=== PATIENT | male | born 1965 | race Caucasian/White ===

== ENCOUNTER 2024-10-05 08:54 | Outpatient (REF) | payer OTHER, SELFPAY ==
[2024-10-05 11:21] LABS: Hematocrit 44.4 % (42.0-52.0); Hemoglobin 15.3 g/dl (14.0-18.0); Mean Corpuscular HGB Conc 34.5 g/dl (31.0-36.0); Mean Corpuscular Hemoglobin 30.1 pg (27.0-33.0); Mean Corpuscular Volume 87.4 fL (80.0-98.0); NRBC Abs Auto 0.000 X10*3/uL (0.0-0.012); NRBC Pct Auto 0.0 /100WBC (0.0-0.2); Platelet Count 200 X10*3/uL (160-400); Red Blood Count 5.08 X10*6/uL (4.60-5.80); White Blood Count 9.9 X10*3/uL (4.8-10.8)
[2024-10-05 11:30] LABS: Hemoglobin A1C 142.3529 umol/L; Total Hemoglobin (HGBA1C) 3945.5502 umol/L
[2024-10-05 11:49] LABS: Microalbum/Creatinine Ratio Ur 4.7 ug/mg cr (<30)
[2024-10-05 11:53] LABS: Alanine Aminotransferase 34 U/L (0-40); Albumin Level 4.8 g/dL (3.5-5.0); Alkaline Phosphatase 81 U/L (39-117); Anion Gap 14 (12-20); Aspartate Amino Transferase 47 U/L (5-37); Blood Urea Nitrogen 24 mg/dL (9-16); Calcium 9.8 mg/dL (8.4-10.2); Carbon Dioxide 26 mmol/L (22-29); Chloride 104 mmol/L (96-108); Cholesterol 128 mg/dL (<200); Estimated Glomerular Filt Rate > 60; HDL Cholesterol 37 mg/dL (>40); Potassium 4.3 mmol/L (3.3-5.1); Sodium 140 mmol/L (135-145); Total Protein 7.1 g/dL (6.5-8.0); Triglycerides 130 mg/dL (<150)
[2024-10-05 12:18] LABS: Folate 14.1 ng/mL (> or = 4.0); Vitamin B12 1044 pg/mL (200-900)
== END 2024-10-05 08:55 | disposition home or self-care (01) ==
LOC: HO.WFDLDS 08:54
PROVIDERS: PCP Nurse Practitioner Family; Visit Provider Nurse Practitioner Family
DX: Z00.01 Encounter for general adult medical examination with abnormal findings (principal); Z12.5 Encounter for screening for malignant neoplasm of prostate; Z09 Encounter for follow-up examination after completed treatment for conditions other than malignant neoplasm; Z76.89 Persons encountering health services in other specified circumstances; N40.1 Benign prostatic hyperplasia with lower urinary tract symptoms; N13.8 Other obstructive and reflux uropathy; E78.2 Mixed hyperlipidemia; I10 Essential (primary) hypertension; G62.9 Polyneuropathy, unspecified; G47.33 Obstructive sleep apnea (adult) (pediatric); M43.06 Spondylolysis, lumbar region; N52.9 Male erectile dysfunction, unspecified; Z80.8 Family history of malignant neoplasm of other organs or systems; Z80.7 Family history of other malignant neoplasms of lymphoid, hematopoietic and related tissues; E66.9 Obesity, unspecified; I49.3 Ventricular premature depolarization; B35.1 Tinea unguium
CPT/HCPCS: 36415; 80053; 80061; 82043; 82306; 82570; 82607; 82746; 83036; 84153; 84443; 85027; 96127; 99202

== ENCOUNTER 2024-10-05 08:54 | Outpatient (AMB) | payer OTHER, SELFPAY ==
--- NOTE | 2024-10-05 08:58 | MHC.PC.OV ---
Vital Signs 10/05/24 09:04 Height 5 ft 8.7 in Weight 218 lb 2 oz BMI 32.5 BP 110/68 Blood Pressure Location Rt brachial Position Sitting Respiration 14 Pulse 54 Pulse Source Pulse Oximeter Temp 97.3 F Temp Source Oral Pulse Oximetry (%) 97 Oxygen Delivery Method Room Air Intake Visit Reasons: CPE Intake Note: New patient visit Neuropsychology Director Required: No Allergies No Known Allergies Allergy (Verified 10/05/24 09:09) Medication List - Last Reconciled 10/05/24 by JANE Adam- atorvastatin (Lipitor) 20 mg PO DAILY cholecalciferol (vitamin D3) 25 mcg PO DAILY finasteride PO hydrochlorothiazide 12.5 mg PO DAILY lisinopril 40 mg PO DAILY magnesium oxide 400 mg PO DAILY pregabalin 150 mg PO BID tamsulosin (Flomax) 0.4 mg PO DAILY Tobacco use date assessed: 10/05/24 Dental Screening Dental Screen Date: 10/05/24 Did you have a dental visit in the last 12 months?: Yes Did you have a dental problem in the last 6 months where you did not have access to dental care?: No Was dental information given to patient?: Patient has dentist HPI HPI Comments History of Present Illness Details 58 y/o M with BPH, HLD, HTN, Neuropathy, Obesity, SAHIL on CPAP, multi-level lumbar sponylosis, ED, family hx of skin ca & lymphom, PVCs s/p rotator cuff repair; CTS surgery, R inguinal hernia repair Fhx: Mom skin ca, dad Lymphoma, Brother Skin ca Social: , children, [place]. Health Maintenance Tdap 2021 Colon 2022 at [facility]; record needed. Reports polyps, repeat 5 years. Specialists Cards @ [facility] - The patient is a 58-year-old male presenting to establish care & for CPE - Previous PCP [facility], records rec'd and reviewed . - Obesity with BMI: 32.5 - BPH with lower urinary tract symptoms, managed with finasteride and Flomax. Needs Uro referral. - Neuropathy of unknown origin, likely due to exposure, controlled with pregabalin. Needs Neuro referral was managed by [facility] neuro in past - Essential Hypertension managed by hydrochlorothiazide and lisinopril. - Sleep apnea managed with CPAP; seeking new CPAP supplies & sleep med referral - History of PVCs active w [facility], annual visit. - Chronic low back pain - was managed by [facility]; no longer following. [facility] Going [facility]; doing acupuncture and chiro. - Noted sciatica enrolled in physical therapy sessions. - Family history of skin cancers, with past removal of precancerous lesions. - Went to [facility] 09/21/24, lac of R thumb, 3 sutures placed. Dissolveable. They remain w/o infection. Report reviewed. Tdap UTD. 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 - [facility] with [facility] and appointment delay experiences. - Transitioned insurance to [facility] for closer medical facility access. - Physical activities included past running, now curtailed by arthritis and other musculoskeletal complaints. Health Maintenance - Recent colonoscopy done either late 2022, indicating surveillance strategy for past polyps. - Anticipated dermatology appointments for annual skin checks due to family history of skin cancer. Review of Systems - Cardiovascular: Reports history of PVCs. - Genitourinary: Reports BPH managed with medications. - Neurological: Reports neuropathy treated with lifestyle and pharmacotherapy. - Respiratory: Reports sleep apnea requiring ongoing CPAP management. - Musculoskeletal: Reports degenerative disc disease and sciatica, with ongoing symptom management. - Dermatological: Denies active skin issues but with family history of skin cancer. Physical Exam General: Well developed, well nourished, in no acute distress. Appears stated age. Head: Normocephalic, atraumatic. Eyes: Pupils are equal, round and reactive to light and accommodation. Conjunctivae are clear. Vision grossly normal. Ears: TMs clear Left, unable to see Right d/t cerumen; offered and declined lavage. . Nose: Patent, without discharge. Neck: Supple, no adenopathy or thyromegaly. Breast: Edu on SBE Lungs: Clear to auscultation bilaterally. No rales, rhonchi or wheeze noted. Good air flow in all branch. Heart: Regular rate and rhythm. No murmurs, click, rubs or gallops are noted. Abdomen: Bowel sounds present in all quadrants. The abdomen is soft, nontender, with no masses or organomegaly noted. No hernias are noted. : Deferred. Reviewed JULISSA & recommendations Pulses: Peripheral pulses are equal and palpable bilaterally. Extremities: No clubbing, cyanosis nor edema is noted. Noted thick callus on the bottom of the right toe. Neurologic: Gait and station normal. Cranial Nerves 2-12 intact. Motor strength grossly symmetrical and intact. No sensory loss. Balance normal. Skin: No rashes, ulcers, or lesions noted. Turgor is good. Skin color is good. Hair without abnormalities. Right toe nails thickened, 2nd one darkened. Callous on toes. + neuropathy. Lac to R thumb edges well approx, 2 of 3 sutures removed w/o incident. 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 Psych: Normal eye contact, affect and mood appropriate, and normal interactions. Patient is alert and appropriate to context. Results Pending Discussion Notes I discussed with the patient his desire to establish care, transitional care plans, and management of current chronic conditions. We reviewed his past medical history, current medication regimens, and need for specialty referrals. I emphasized the necessity of continued CPAP use for obstructive sleep apnea and the requirement for dermatological assessments due to his family history of skin cancer. We also discussed alternative care plans for neuropathy and referral needs due to current insurance changes. The patient was advised on using the patient portal for communication and appointment tracking. We completed a physical assessment, removing most sutures, and arranged for blood work to be done. A detailed explanation of how to use the patient portal for easy access to health information and communication with our network was provided. Patient was given time to ask questions. All questions were answered to their satisfaction. Assessment and Plan 1. Obesity - Continue lifestyle changes. Monitor weight. 2. Hyperlipidemia - Continue atorvastatin. Monitor lipids. 3. BPH and ED - Maintain medications. Urology referral. 4. Neuropathy - Continue pregabalin. Neurology referral. - Thickened toe nails refer to podiatry 5. Hypertension - Continue medications. Monitor BP. 6. Sleep Apnea - Continue CPAP. Sleep medicine referral. 7. PVCs - Cardiovascular monitoring. Human Resources Manager Manufacturing referral. 8. Degenerative Disc Disease - [facility] 9. Skin Cancer Risk - Schedule dermatological checks. 10. Suture Care - Edu provided; Monitor site. 11. Lab Work - Conduct baseline tests including PSA. RTO 6 MO HTN/HLD SOONER PRN Patient Instructions - Continue with current medications as discussed. - Expect calls from specialist offices for appointments. - Set up your patient portal as soon as possible. - Undergo lab tests today; no fasting needed. - Expect communication about CPAP supplies and sleep medicine referral. - Follow instructions for annual dermatology checks. - Return in six months for follow-up care, including labs. - Contact the office through the portal for pressing concerns. Consent Patient was informed and verbally consented to the use of an ambient scribe for clinic note documentation during this visit. An additional 45 minutes was spent addressing the problem(s) noted at todays visit. This includes time spent before the visit reviewing the chart, time spent during the visit, and time spent after the visit on documentation reviewing laboratory results, diagnostic imaging, medications, performing a medically necessary evaluation, counseling on diagnoses, care coordination, ordering appropriate tests, ordering appropriate medications, review of tests performed by other providers, reporting test results with the patient, communication with other healthcare providers. 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 1. Little interest or pleasure in doing things: not at all 2. Feeling down, depressed, or hopeless: not at all 3. Trouble falling or staying asleep, or sleeping too much: not at all 4. Feeling tired or having little energy: not at all 5. Poor appetite or overeating: not at all 6. Feeling bad about yourself - or that you are a failure or have let yourself or your family down: not at all 7. Trouble concentrating on things, such as reading the newspaper or watching television: not at all 8. Moving or speaking so slowly that other people could have noticed. Or the opposite - being so fidgety or restless that you have been moving around a lot more than usual: not at all 9. Thoughts that you would be better off or of hurting yourself in some way: not at all Total score: 0 Depression Screening Interpretation: Negative Depression Screening Done: Yes 52932 - PHQ-9 Billing: Yes Source: Developed by Drs. Layton Hansen, Edyta Gavin, Jeffery Dykes and colleagues, with an educational tye from [employer]. Thrive Questionnaire Date Thrive assessed: 10/05/24 I am a: Patient What is your living situation today?: I have a steady place to live Within the past 12 months, did the food you bought not last and you didn't have the money to get more?: Never true Within the past 12 months, did you worry whether your food would run out before you got money to buy more?: Never true Do you have trouble paying for medicines?: No Do you have trouble getting transportation to medical appointments?: No Do you have trouble paying your heating and electricity bill?: No Do you have trouble taking care of your child, family member or friend?: No Do you have trouble with day-to-day activities such as bathing, preparing meals, shopping, managing finances, etc.?: No Are you currently unemployed and looking for a job?: No Are you interested in more education?: No Please select the resources that you would like help with: None Currently or been in a relationship where the following occur: No concerns reported THRIVE Score: 0 AUDIT C Alcohol Use Questionnaire (AUDIT-C) 1. How often do you have a drink containing alcohol?: 2-3 times a week 2. How many drinks containing alcohol do you have on a typical day when you are drinking?: 1 or 2 3. How often do you have six or more drinks on one occasion?: Never Total Score: 3 Score Reviewed/Action Taken: Yes REMI-7 AMB Questionnaire REMI-7 Date REMI - 7 assessed: 10/05/24 Feeling nervous, anxious, or on edge: 0 = Not at all Not being able to stop or control worryin = Not at all Worrying too much about different things: 0 = Not at all Trouble relaxin = Not at all Being so restless that it is hard to sit still: 0 = Not at all Becoming easily annoyed or irritable: 0 = Not at all Feeling afraid as if something awful might happen: 0 = Not at all Total REMI-7 score (0-4 normal; 5-9 mild; 10-14 moderate; 15-21 severe): 0 Source: Developed by Drs. Layton Hansen, Edyta Gavin, Jeffery Dykes and colleagues, with an educational tye from [employer]. REMI-7 Assessment Billing REMI-7 Assessment Tool: REMI-7 Assessment 30489 Physical exam (Primary Care) Vital Signs: Last Vital Signs Temp 97.3 F 10/05/24 09:04 Pulse 54 10/05/24 09:04 Resp 14 10/05/24 09:04 BP 110/68 10/05/24 09:04 Pulse Ox 97 10/05/24 09:04 Oxygen Delivery Method Room Air 10/05/24 09:04 BMI result Body Mass Index 32.5 BMI Assessment/Plan discussion: High BMI High, discussed plan: lifestyle Tobacco/Smoking Status: Tobacco use Status Tobacco use date assessed 10/05/24 10/05/24 09:04 Patient Tobacco Use Status Never used Tobacco 10/05/24 09:04 e-Cigarette/Vaping Use Never Used 10/05/24 09:04 PHQ-9: PHQ-9 Score PHQ-9: Total score 0 10/05/24 09:04 Depression Screening Interpretation: Negative Currently or been in a relationship where the following occur: No concerns reported Coding Level of Care Code New Pt Level 5 (91565) New Pt Prev Care 40-64y(83004) Diagnoses Encounter to establish care with new provider Z76.89 BPH w urinary obs/LUTS N40.1; N13.8 Mixed hyperlipidemia E78.2 Hyperlipidemia type: mixed hyperlipidemia Primary hypertension I10 Hypertension type: primary hypertension Neuropathy G62.9 SAHIL on CPAP G47.33 Lumbar spondylolysis M43.06 Erectile dysfunction, unspecified erectile dysfunction type N52.9 Erectile dysfunction type: unspecified Family history of skin cancer Z80.8 Family history of lymphoma Z80.7 Obesity (BMI 30-39.9) E66.9 PVC (premature ventricular contraction) I49.3 Skin cancer screening Z12.83 Laboratory exam ordered as part of routine general medical examination Z00.00 Onychomycosis B35.1 Encounter for general adult medical examination without abnormal findings Z00.00 Hospital discharge follow-up Z09 Additional Codes PHQ-9 - 47976 - PHQ-9 Billing: Yes ([id number]) REMI-7 Assessment Billing - REMI-7 Assessment Tool: REMI-7 Assessment 97541 ([id number]) Assessment & Plan Assessment & Plan (1) Encounter to establish care with new provider: Code(s): Z76.89 - Persons encountering health services in other specified circumstances (2) BPH w urinary obs/LUTS: Code(s): N40.1 - Benign prostatic hyperplasia with lower urinary tract symptoms; N13.8 - Other obstructive and reflux uropathy Category: Medical (3) HLD (hyperlipidemia): Code(s): E78.5 - Hyperlipidemia, unspecified Category: Medical Qualifiers: Hyperlipidemia type: mixed hyperlipidemia Qualified Code(s): E78.2 - Mixed hyperlipidemia (4) HTN (hypertension): Code(s): I10 - Essential (primary) hypertension Category: Medical Qualifiers: Hypertension type: primary hypertension Qualified Code(s): I10 - Essential (primary) hypertension (5) Neuropathy: Code(s): G62.9 - Polyneuropathy, unspecified Category: Medical (6) SAHIL on CPAP: Code(s): G47.33 - Obstructive sleep apnea (adult) (pediatric) Category: Medical (7) Lumbar spondylolysis: Code(s): M43.06 - Spondylolysis, lumbar region Category: Medical (8) Erectile dysfunction: Code(s): N52.9 - Male erectile dysfunction, unspecified Category: Medical Qualifiers: Erectile dysfunction type: unspecified Qualified Code(s): N52.9 - Male erectile dysfunction, unspecified (9) Family history of skin cancer: Comment: MOM AND BROTHER Code(s): Z80.8 - Family history of malignant neoplasm of other organs or systems Category: Medical (10) Family history of lymphoma: Comment: DAD Code(s): Z80.7 - Family history of other malignant neoplasms of lymphoid, hematopoietic and related tissues Category: Medical (11) Obesity (BMI 30-39.9): Code(s): E66.9 - Obesity, unspecified Category: Medical (12) PVC (premature ventricular contraction): Code(s): I49.3 - Ventricular premature depolarization Category: Medical (13) Skin cancer screening: Code(s): Z12.83 - Encounter for screening for malignant neoplasm of skin Category: Medical (14) Laboratory exam ordered as part of routine general medical examination: Code(s): Z00.00 - Encounter for general adult medical examination without abnormal findings Category: Medical (15) Onychomycosis: Code(s): B35.1 - Tinea unguium Category: Medical (16) Encounter for general adult medical examination without abnormal findings: Onset Date: ~10/05/24 Code(s): Z00.00 - Encounter for general adult medical examination without abnormal findings Category: Medical (17) Hospital discharge follow-up: Code(s): Z09 - Encounter for follow-up examination after completed treatment for conditions other than malignant neoplasm Plan . Orders: Orders Hemoglobin A1c Today E78.5 - Hyperlipidemia, unspecified, I10 - Essential (primary) hypertension, N13.8 - Other obstructive and reflux uropathy, N40.1 - Benign prostatic hyperplasia with lower urinary tract symptoms, N52.9 - Male erectile dysfunction, unspecified, Z00.00 - Encounter for general adult medical examination without abnormal findings Lipid Panel Today E78.5 - Hyperlipidemia, unspecified, I10 - Essential (primary) hypertension, N13.8 - Other obstructive and reflux uropathy, N40.1 - Benign prostatic hyperplasia with lower urinary tract symptoms, N52.9 - Male erectile dysfunction, unspecified, Z00.00 - Encounter for general adult medical examination without abnormal findings Microalbumin, Random (w Creat) Today E78.5 - Hyperlipidemia, unspecified, I10 - Essential (primary) hypertension, N13.8 - Other obstructive and reflux uropathy, N40.1 - Benign prostatic hyperplasia with lower urinary tract symptoms, N52.9 - Male erectile dysfunction, unspecified, Z00.00 - Encounter for general adult medical examination without abnormal findings TSH reflex Free T4 Today E78.5 - Hyperlipidemia, unspecified, I10 - Essential (primary) hypertension, N13.8 - Other obstructive and reflux uropathy, N40.1 - Benign prostatic hyperplasia with lower urinary tract symptoms, N52.9 - Male erectile dysfunction, unspecified, Z00.00 - Encounter for general adult medical examination without abnormal findings Vitamin D 25-OH Total Today E78.5 - Hyperlipidemia, unspecified, I10 - Essential (primary) hypertension, N13.8 - Other obstructive and reflux uropathy, N40.1 - Benign prostatic hyperplasia with lower urinary tract symptoms, N52.9 - Male erectile dysfunction, unspecified, Z00.00 - Encounter for general adult medical examination without abnormal findings Complete Blood Count no Diff Today E78.5 - Hyperlipidemia, unspecified, I10 - Essential (primary) hypertension, N13.8 - Other obstructive and reflux uropathy, N40.1 - Benign prostatic hyperplasia with lower urinary tract symptoms, N52.9 - Male erectile dysfunction, unspecified, Z00.00 - Encounter for general adult medical examination without abnormal findings Comprehensive Met. Panel Today E78.5 - Hyperlipidemia, unspecified, I10 - Essential (primary) hypertension, N13.8 - Other obstructive and reflux uropathy, N40.1 - Benign prostatic hyperplasia with lower urinary tract symptoms, N52.9 - Male erectile dysfunction, unspecified, Z00.00 - Encounter for general adult medical examination without abnormal findings Prostate Specific Antigen Scr Today E78.5 - Hyperlipidemia, unspecified, I10 - Essential (primary) hypertension, N13.8 - Other obstructive and reflux uropathy, N40.1 - Benign prostatic hyperplasia with lower urinary tract symptoms, N52.9 - Male erectile dysfunction, unspecified, Z00.00 - Encounter for general adult medical examination without abnormal findings Vitamin B12 and Folate Today E78.5 - Hyperlipidemia, unspecified, I10 - Essential (primary) hypertension, N13.8 - Other obstructive and reflux uropathy, N40.1 - Benign prostatic hyperplasia with lower urinary tract symptoms, N52.9 - Male erectile dysfunction, unspecified, Z00.00 - Encounter for general adult medical examination without abnormal findings Referrals Sleep Medicine Referral G47.33 - Obstructive sleep apnea (adult) (pediatric), G62.9 - Polyneuropathy, unspecified Dermatology Referral Z12.83 - Encounter for screening for malignant neoplasm of skin, Z80.8 - Family history of malignant neoplasm of other organs or systems Podiatry Referral B35.1 - Tinea unguium, G62.9 - Polyneuropathy, unspecified Cardiology Referral I49.3 - Ventricular premature depolarization Urology Referral N13.8 - Other obstructive and reflux uropathy, N40.1 - Benign prostatic hyperplasia with lower urinary tract symptoms, N52.9 - Male erectile dysfunction, unspecified Patient Instructions: Walk-In Care (Urgent Care): We Make it Easy Walk-in for urgent medical issues such as: ? Seasonal Allergies ? Insect Bites ? Cough ? Diarrhea ? Acute Asthma Attacks ? Back, Knee or Joint Pain ? Ear Infection ? Fever without a Rash ? Headaches ? Nausea ? [place] [facility], Rash or Skin Irritation ? Sore Throat ? Sports Physicals ? Vomiting Most insurances are accepted. Patients do not need to be part of the [facility] to seek care at the walk-in clinic. Locations [facility] [place] [address] ? [phone] [facility] in [place] provides services to ages 18 and over. Open Friday-Friday: 8 a.m. to 5 p.m. and Friday: 9 a.m. to 3 p.m.* *Hours may vary due to staffing availability. To confirm Walk-In Care hours in [place], please call [phone]. [address] [place] [address] ? [phone] [facility] in [place] provides services to ages 12 and over. Open Friday-Friday: 8 a.m. to 5 p.m. Hours may vary due to staffing availability. To confirm Walk-In Care hours in [place], please call [phone]. LABORATORY SERVICES: [facility] Lab ? Primary Location [address] [place] [address] Friday through Friday 6:00 AM ? 5:00 PM Friday 7:00 AM ? 11:00 AM* [phone] The [facility] Lab is centrally located near the front entrance of the [facility] for easy outpatient access. Convenient parking is provided for outpatients. *Hours may vary due to staffing availability. To confirm Laboratory hours for any location, please call [phone]. Offsite Location For your convenience, we offer offsite laboratory draw stations at the following locations: [address] [place] [address] ? [facility] [address], [address] Friday through Friday 7:30 AM ? 1:00 PM* [phone] *Hours may vary due to staffing availability. To confirm Laboratory hours for any location, please call [phone]. [place] ? Jada [address]en [address] Friday through Friday 6:00 AM ? 3:30 PM* Friday 6:30 AM ? 3 PM* [phone] *Hours may vary due to staffing availability. To confirm Laboratory hours for any location, please call [phone]. [address] [facility] Friday through Friday 7:30 AM ? 4:00 PM* [phone] *Hours may vary due to staffing availability. To confirm Laboratory hours for any location, please call [phone]. [address] [facility] Friday through 9:00 AM ? 4:00 PM* *Hours may vary due to staffing availability. To confirm Laboratory hours for any location, please call [phone]. Appointments are not necessary. Walk-ins are welcome. Like all the departments throughout the [facility], our Lab undergoes frequent reviews to ensure the quality and accuracy of test results, and our staff takes special pride in its status as a nationally accredited facility. Patient Portal: ONE PATIENT. ONE RECORD. BETTER CARE. [facility] has a fully integrated, cutting-edge mobile electronic health information system that has revolutionized the way we care for our patients and manage our organization. This system improves communication and coordination enabling us to provide safe, higher-quality care, and an overall positive experience for staff and patients. Our first priority, as always, is to deliver the highest quality care possible. The system is running in the background supporting that priority. This portal is for all [facility] services and practices. If you are experiencing any technical difficulties with enrolling or logging into the Patient Portal please complete the [facility] Patient Portal Technical Support Form. [facility] and [facility] now offers a new secure on-line interactive tool for patients to review their health information ? ?Patient Portal. This interactive web portal will enable patients and their families to take an active role in their care by providing easy, secure access to their health information via the internet. The Patient Portal provides patients with instant access to their health information, including laboratory results, medications, allergies, demographic information, visit history, and more. In addition to managing their own care, parents and health care proxies with authorized consent will appreciate the ability to access the records of those individuals for whom they provide care. Please note: if you wish to gain access (Proxy) to another patient?s portal, you will be required to come to the Medical Records Department in person at [facility]. Both the patient giving proxy access and the proxy will need to provide photo identification and complete the appropriate authorization. The Patient Portal also allows track their appointments online. The [facility] Patient Portal also saves patients time by allowing them to submit updates to their demographic and contact information prior to their visits. Portal email notifications will also alert patients to any new activity on their portal, such as test results and new appointments. In order to initially enroll in the [facility] Patient Portal, you will need to enter some required information including the following: your [facility] Medical Record number your personal home email address name date of Please note: In order to enroll in the [facility] Patient Portal, we need to have your email address on file in your electronic medical record. ?The email address needs to be specific for one person (yourself) in order for your Portal enrollment to be successful. ?You can update your email address in person with our Registration staff when you are registering for a hospital visit. ?Otherwise, you will need to come to the Health Information Management (Medical Records) Department at [facility]. ?We are open from Friday ? Friday from 7:30 a.m. ? 4:30 p.m. ?You will be required to present a photo id. Once you have successfully enrolled in the Patient Portal, you will receive a one-time user id and password for the Portal, sent to your email address. ?This will allow you to log into the Patient Portal within 99 hrs and reset your own logon id and password, and define personal security questions. ?Once your permanent login and password have been set, you can log into the [facility] Patient Portal at any time via the blue button above or from the Portal Logon button on any page of the [facility] website. [facility] and [facility] encourage all of our patients to enroll in Patient Portal as it presents a valuable opportunity for patients and their families to actively participate in their care and stay healthy Welcome to [facility]. ?We look forward to working with you. Health screenings for men You should visit your health care provider regularly, even if you feel healthy. The purpose of these visits is to: Screen for medical issues Assess your risk for future medical problems Encourage a healthy lifestyle Update vaccinations and other preventive care services Help you get to know your provider in case of an illness Information Even if you feel fine, you should still see your provider for regular checkups. These visits can help you avoid problems in the future. For example, the only way to find out if you have high blood pressure is to have it checked regularly. High blood sugar and high cholesterol level also may not have any symptoms in the early stages. Simple blood tests can check for these conditions. There are specific times when you should see your provider or receive specific health screenings. The [place] Preventive Services Task Force publishes a list of recommended screenings. Below are screening guidelines for men ages 40 to 64. BLOOD PRESSURE SCREENING Have your blood pressure checked at least once every year. Watch for blood pressure screenings in your area. Ask your provider if you can stop in to have your blood pressure checked. Ask your provider if you need your blood pressure checked more often if: You have diabetes, heart disease, kidney problems, or are overweight or have certain other health conditions You have a first-degree relative with high blood pressure You are Black Your blood pressure top number is from 120 to 129 mm Hg, or the bottom number is from 70 to 79 mm Hg If the top number is 130 mm Hg or greater or the bottom number is 80 mm Hg or greater, this is considered stage 1 hypertension. Schedule an appointment with your provider to learn how you can lower your blood pressure. Effects of age on blood pressure CHOLESTEROL SCREENING Cholesterol screening should begin at age 35 for men with no known risk factors for coronary heart disease. Repeat cholesterol screening should take place: Every 5 years for men with normal cholesterol levels More often if changes occur in lifestyle (including weight gain and diet) More often if you have diabetes, heart disease, kidney problems, or certain other conditions COLORECTAL CANCER SCREENING If you are under age 45, talk to your provider about getting screened. You may need to be screened if you have a strong family history of colon cancer or polyps. Screening may also be considered if you have risk factors such as a history of inflammatory bowel disease or polyps. If you are age 45 to 75, you should be screened for colorectal cancer. There are several screening tests available: A stool-based fecal occult blood (gFOBT) or fecal immunochemical test (FIT) every year A stool sDNA test every 1 to 3 years Flexible sigmoidoscopy every 5 years or every 10 years with stool testing FIT done every year CT colonography (virtual colonoscopy) every 5 years Colonoscopy every 10 years You may need a colonoscopy more often if you have risk factors for colorectal cancer, such as: Ulcerative colitis A personal or family history of colorectal cancer A history of growths in your colon called adenomatous polyps DENTAL EXAM Go to the dentist once or twice every year for an exam and cleaning. Your dentist will evaluate if you have a need for more frequent visits. DIABETES SCREENING All adults who do not have risk factors for diabetes should be screened starting at age 35 and repeated every 3 years. If you have other risk factors for diabetes, such as a first degree relative with diabetes, overweight or obesity, high blood pressure, prediabetes, or a history of heart disease, you may be tested more often. If you are overweight and have other risk factors, such as high blood pressure and are planning to become , screening is recommended. EYE EXAM Have an eye exam every 2 to 4 years ages 40 to 54 and every 1 to 3 years ages 55 to 64. Your provider may recommend more frequent eye exams if you have vision problems or glaucoma risk. Have an eye exam that includes an examination of your retina (back of your eye) at least every year if you have diabetes. IMMUNIZATIONS Commonly needed vaccines include: Flu shot: get one every year COVID-19 vaccine: ask your provider what is best for you Tetanus-diphtheria and acellular pertussis (Tdap) vaccine: have as one of your tetanus-diphtheria vaccines if you did not receive it as an adolescent Tetanus-diphtheria: have a booster (or Tdap) every 10 years Varicella vaccine: receive 2 doses if you never had chickenpox or the varicella vaccine and were born in 1980 or after Hepatitis B vaccine: receive 2, 3, or 4 doses, depending on your exact circumstances, if you did not receive these as a child or adolescent, until age 59 Shingles (herpes zoster) vaccine: at or after age 50 Ask your provider if you should receive other immunizations, especially if you have certain medical conditions, such as diabetes or are at increased risk for some diseases such as pneumonia. INFECTIOUS DISEASE SCREENING Screening for hepatitis C: all adults ages 18 to 79 should get a one-time test for hepatitis C. Screening for human immunodeficiency virus (HIV): all people ages 15 to 65 should get a one-time test for HIV. Depending on your lifestyle and medical history, you may need to be screened for infections such as syphilis, chlamydia, and other infections. LUNG CANCER SCREENING You should have an annual screening for lung cancer with low-dose computed tomography (LDCT) if: You are age 50 to 80 years AND You have a 20 pack-year smoking history AND You currently smoke or have quit within the past 15 years OSTEOPOROSIS SCREENING If you are age 50 to 64 and have risk factors for osteoporosis, you should discuss screening with your provider. Risk factors can include long-term steroid use, low body weight, smoking, heavy alcohol use, having a fracture after age 50, or a family history of hip fracture or osteoporosis. Osteoporosis PHYSICAL EXAM All adults should visit their provider from time to time, even if they are healthy. The purpose of these visits is to: Screen for diseases Assess risk of future medical problems Encourage a healthy lifestyle Update vaccinations and other preventive care services Maintain a relationship with a provider in case of an illness Your height, weight, and body mass index (BMI) should be checked at every exam. During your exam, your provider may ask you about: Depression and anxiety Diet and exercise Alcohol and tobacco use Safety, such as use of seat belts and smoke detectors Your medicines and risk for interactions PROSTATE CANCER SCREENING If you're 55 through 69 years old, before having the test, talk to your provider about the pros and cons of having a PSA test. Ask about: Whether screening decreases your chance of dying from prostate cancer. Whether there is any harm from prostate cancer screening, such as side effects from testing or overtreatment of cancer when discovered. Whether you have a higher risk of prostate cancer than others. If you are age 55 or younger, screening is not generally recommended. You should talk with your provider about if you have a higher risk for prostate cancer. Risk factors include: Having a family history of prostate cancer (especially a brother or father) Being If you choose to be tested, the PSA blood test is repeated over time (yearly or less often), though the best frequency is not known. Prostate examinations are no longer routinely done on men with no symptoms. Prostate cancer SKIN EXAM Your provider may check your skin for signs of skin cancer, especially if you're at high risk. People at high risk include those who have had skin cancer before, have close relatives with skin cancer, or have a weakened immune system. TESTICULAR EXAM The US Preventive Services Task Force (USPSTF) now recommends against performing testicular self-exams. Doing testicular self-exams has been shown to have little to no benefit.
[2024-10-05 09:04] VITALS: BP 110/68; PULSE 54; RESP 14; TEMP 36.3; O2SAT 97; BMI 32.5
--- OUTSIDE RECORDS SUMMARY | 2024-10-05 09:45 | XMS_ITS | Clinical Summary ---
Author Organization [facility] Address [address] [place] [id number] Phone Care Team Providers Care Distribution Transformer Assembler Name Role Phone Tisha Haque NP Primary Care Provider Allergies No known active allergies Medications celecoxib (CELEBREX) 200 MG capsule 07/31/2020 Active pregabalin (LYRICA) 150 MG capsule 08/03/2020 Active finasteride (PROSCAR) 5 mg tablet 07/31/2020 Active lisinopril (PRINIVIL,ZESTRIL) 40 MG tablet 07/31/2020 Active magnesium oxide (MAG-OX) 400 mg (241.3 mg elemental) tablet 07/31/2020 A ctive atorvastatin (LIPITOR) 20 MG tablet 07/31/2020 Active hydroCHLOROthiazid e (HYDRODIURIL) 12.5 MG tablet 07/31/2020 Acti ve dilTIAZem (TIAZAC) 360 MG 24 hr capsule 07/31/2020 Active tamsulosin (FLOMAX) 0.4 mg Cap 07/31/2020 Active DETROL LA 2 mg 24 hr capsule 07/31/2020 Active Active Problems Problem Noted Date Diagnosed Date Palpitations 11/04/2022 Class 1 obesity 11/03/2020 Enlarged prostate 11/02/2020 High blood pressure 11/02/2020 High cholesterol 11/02/2020 Osteoarthritis 11/02/2020 Moderate obstructive sleep apnea 11/02/2020 Immunizations Immunization Administration Dates Next Due COVID-19 (Pre-12/09) Pfizer Vaccine, mRNA, PF 04/14/2020,03/24/2020 Hepatitis A, Adult 05/01/1996,01/01/1995 Hepatitis B Adult 12/08/2008,03/28/2008,02/21/19 09 INFLUENZA, SPLIT VIRUS, TRIVALENT PF 03/04/2014 Influenza Quadrivalent Prese rvative Free IM 12/08/2020,12/18/2018,04/24/2018,11/29,12/14/2014 Influenza Split (Incl. Purif ied Surface Antigen) 01/21/2006,01/09/2005 Influenza quadrivalent nasal 12/02/2011, 12/08/2008,02/25/2007,03/15 Influenza, whole 12/14/2002, 3,12/01/2000,01/31,12/21/1998,12/22/1997,12/06/1996 MMR 07/24/2018,12/08/1983 Meningococcal MPSV4 02/26/2002 PPD Test 07/01/2000 Polio - OPV 05/07/1985 Td (adult),2 Lf Tetanus Toxo id, PF, Adsorbed 07/29/2021,01/23/2005,01/07/1995 Tdap 06/17/2013,03/02/2013 Typhoid, ViCPs 08/30/2002 Typhoid, parenteral 11/07/2000 Yellow Fever 10/16/1997 Zoster recombinant 10/11/2020,03/26/2019 Social History Tobacco Use Types Packs/Day Years Used Date Smoking Tobacco: Never Smokeless Tobacco: Never Education Answer Date Recorded Are you interested in more education? Not on michael e 06/14/2022 Are you concerned about learning? Not on file 06/14/2022 No 06/14/2022 No 06/14/2022 Digital Access Answer Date Recorded No 07/13/2022 No 07/13/2022 No 07/13/2022 Reliable internet access at home? Not on file 07/13/2022 Device with a working camera? 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 Not on file Not on file Not on michael e Last Filed Vital Signs Vital Sign Reading Time Taken Comments Blood Pressure 124/76 11/04/2022 12:22 PM EDT Pulse 66 11/04/2022 12:22 PM EDT Temperature 36.6 C (97.8 F) 11/04/2022 12:22 PM EDT Respiratory Rate - - Oxygen Saturation 97% 11/04/2022 12: 22 PM EDT RA at rest Inhaled Oxygen Concentration - - Weight 100 kg (220 lb 6.4 oz) 12:22 PM EDT Height 177.8 cm (5' 10 ) 11/04/2022 12: 22 PM EDT Body Mass Index 31.62 11/04/2022 12:22 PM EDT Plan of Treatment Health Maintenance Due Date Last Done Comments CREATININE LEVEL 1964 LIPID PANEL 1964 POTASSIUM LEVEL 1964 DEPRESSION SCREENING 1976 HEPATITIS C SCREENING 1982 HIV ONE-TIME SCREENING (18-65 YEARS) 1982 SMOKING STATUS SCREENING (Once After 26 Yrs) 1990 SCREENING FOR DIABETES 12/01/1999 COLOGUARD 2009 COLONOSCOPY 2009 COLORECTAL CANCER SCREENING 2009 FIT TEST 2009 FOBT 2009 SIGMOIDOSCOPY 2009 VIRTUAL COLONOSCOPY 2009 PNEUMOCOCCAL VACCINES (50+ years) (1 of 1 - PCV) 2014 BLOOD PRESSURE 05/05/2023 11/04/2022 COVID-19 VACCINE (2023- season) 2023 01/09/2021, 04/14/2020, 03/24/2020 Adult Td,Tdap Booster 07/30/2031 07/29/2021 , 06/17/2013, 03/02/2013, Additional history exists HEPATITIS A VACCINES Aged Out 05/01/1996, 01/01/19 95 No longer eligible based on patient's age to complete this topic MENINGOCOCCAL VACCINES (ACWY) Aged Out 02/26/2002 No longer eligible based on patient's age to complete this topic ZOSTER VACCINES Completed 10/11/2020, 03/26/2019 HIB VACCINES Aged Out No longer eligi ble based on patient's age to complete this topic MENINGOCOCCAL VACCINES (B) Aged Out N o longer eligible based on patient's age to complete this topic Medical Devices Not on [place] [address] [place] [address] [place] [address] [place] [address] [place] [address] [place] [address] Care Teams Distribution Transformer Assembler Relationship Specialty Start Date End Date Tisha Haque NP [address] [place] [address] PCP - General Nurse Practitioner 11/04/22 Additional Source Comments The information contained in this document represents components of the legal health record. It is not the complete legal health record.[facility]
--- OUTSIDE RECORDS SUMMARY | 2024-10-05 09:45 | XMS_ITS ---
Author Name [facility] Organization Unknown History of Medication Use Medication Directions Dispensed Refills Start Date End Date Stat us amoxicillin-clavulanate (AUGMENTIN) 875-125 mg per tablet Take 1 tablet by mouth every 12 (twelve) hours for 7 days. 05/03/2024 active atorvastatin (LIPITOR) 20 mg tablet Take 1 tablet (20 mg total) by mouth daily. active cholecalciferol, vitamin D3, 25 mcg (1,000 unit) tablet Take 1 tablet (1,000 Units total) by mouth daily. active finasteride (PROPECIA) 1 mg tablet Take 1 tablet (1 mg total) by mouth daily. active hydroCHLOROthiazide 12.5 mg tablet Take 1 tablet (12.5 mg total) by mouth daily. active pregabalin (LYRICA) 25 mg capsule Take 1 capsule (25 mg total) by mouth 2 (two) times daily. active tamsulosin (FLOMAX) 0.4 mg 24 hr capsule Take 1 capsule (0.4 mg total) by mouth daily. active Problems Problem Status Onset Date Problem Type Date of Resoluti on Source Acute non-recurrent maxillary sinusitis active 2024-05-03 ProblemAct [facility] Encounters Encounter Type Encounter Reason Primary Diagnosis Location Date Ambulatory Acute maxillary sinusitis Acute maxillary sinusitis [facility] 05/03/2024 Care Team Organization Name Specialty Phone Email Start Date End [facility] 05/03/2024 [facility] 11/06/2022
--- OUTSIDE RECORDS SUMMARY | 2024-10-05 09:46 | XMS_ITS | Clinical Summary ---
Author Organization [address] Address [address] [place] [id number] Care Team Providers Care Solar Pv Installer Name Role Phone Pcp, Does Not Have A Primary Care Provider Unava ilable Allergies No known active allergies Medications pregabalin (LYRICA) 25 mg capsule Take 1 capsule (25 mg total) by mouth 2 (two) times daily. Active cholecalciferol , vitamin D3, 25 mcg (1,000 unit) tablet Take 1 tablet (1,000 Units total) by mouth daily. Active hydroCHLOROthia zide 12.5 mg tablet Take 1 tablet (12.5 mg total) by mouth daily. Active atorvastatin (LIPITOR) 20 mg tablet Take 1 tablet (20 mg total) by mouth daily. Active tamsulosin (FLOMAX) 0.4 mg 24 hr capsule Take 1 capsule (0.4 mg total) by mouth daily. Active finasteride (PROPECIA) 1 mg tablet Take 1 tablet (1 mg total) by mouth daily. Active Active Problems Problem Noted Date Diagnosed Date Acute non-recurrent maxillary sinusitis 05/04/19 25 Immunizations Immunization Administration Dates Next Due Influenza, split virus, trivalent, Preservative Free 12/08/2023 Social History Tobacco Use Types Packs/Day Years Used Date Smoking Tobacco: Never Tobacco Cessation:Counseling Given: Not Answered Alcohol Use Standard Drinks/Week Comments Not Currently 0 (1 standard drink = 0.6 oz pur e alcohol) Sex and Gender Information Value Date Recorded Sex Assigned at Not on file Legal Sex Male 9:15 AM EDT Gender Identity Not on file Sexual Orientation Not on file Last Filed Vital Signs Vital Sign Reading Time Taken Comments Blood Pressure 111/73 05/03/2024 9:41 AM EDT Pulse 57 05/03/2024 9:41 AM EDT Temperature 35.9 C (96.7 F) 05/03/2024 9:41 AM EDT Respiratory Rate 16 05/03/2024 9:41 AM EDT Oxygen Saturation 98% 05/03/2024 9:41 AM EDT Inhaled Oxygen Concentration - - Weight 104.3 kg (230 lb) 05/03/2024 9:41 AM EDT Height - - Body Mass Index - - Plan of Treatment Health Maintenance Due Date Last Done Comments HIV screening 1977 Hepatitis C screening 1982 Lipid disorder screening 2004 Colon cancer screening, Colonoscopy 2009 Diabetes screening 2009 Pneumococcal Vaccine (50+ years) (1 of 1 - PCV) 2014 Covid-19 vaccine series ( - season) 2023 01/09/2021, 04/14/2020, 03/24/2020 Influenza vaccine 10/18/2024 12/08/2023, , 11/19/2021, Additional history exists Tetanus adult (Td q 10,TDAP once) 07/30/2031 07/29/2021, 06/17/2013, 03/02/2013 RSV Immunization (1 - 1-dose 75+ series) 12/01/2039 Meningococcal Vaccine Aged Out 02/26/2002 No alex kavon eligible based on patient's age to complete this topic Shingles vaccine (Shingrix) Completed 10/11/2020, 0 03/26/2019 Insurance [facility] Care Teams Solar Pv Installer Relationship Specialty Start Date End Date Pcp, Does Not Have A PCP - General 05/03/24
== END 2024-10-05 09:44 | disposition home or self-care (01) ==
LOC: HO.HMCFM 08:55
PROVIDERS: PCP Nurse Practitioner Family; Visit Provider Nurse Practitioner Family
DX: Z00.00 Encounter for general adult medical examination without abnormal findings (principal); N40.1 Benign prostatic hyperplasia with lower urinary tract symptoms; E66.9 Obesity, unspecified; Z68.32 Body mass index [BMI] 32.0-32.9, adult; N13.8 Other obstructive and reflux uropathy; E78.2 Mixed hyperlipidemia; I10 Essential (primary) hypertension; G62.9 Polyneuropathy, unspecified; G47.33 Obstructive sleep apnea (adult) (pediatric); M43.06 Spondylolysis, lumbar region; N52.9 Male erectile dysfunction, unspecified; Z80.8 Family history of malignant neoplasm of other organs or systems

== ENCOUNTER 2024-11-09 08:21 | Outpatient (AMB) | payer OTHER, SELFPAY ==
[2024-11-09 08:30] VITALS: BP 114/72; PULSE 64; O2SAT 93; BMI 32.8
--- NOTE | 2024-11-09 08:30 | MHC.OFFVIS ---
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 Sleep apnea managed with CPAP(Regional); seeking new CPAP supplies. Machine almost 4years old. Accompanied by: Self / Same As Patient Allergies No Known Allergies Allergy (Verified 11/09/24 08:33) HPI Comments Details: 58 year old male with SAHIL on cpap therapy comes in for a new pt. evaluation he is referred to us by his pcp. SAHIL Compliance Report 07/2024 -10/2024 Total use is 90/90 day sand 100% >4 hour is 88 days Avg total daily use is 6hour and 41min. Apap [id number] Median press 9.6cmH20 and Leaks 0.5cmH20 AHI is 1.3 He washes his mask, rinses the hoses, changes the filters, and fills reservoir with water. He is retired [employer] of 24 years of active service and exposure to many environmental toxins, and +fh of Parkinsons. He goes to sleep at 7pm and wakes up at 2am, rides his bike for 45min and gets ready to leave for work by 5:30am. He denies morning headaches and uses a mouth guard for bruxism, denies jaw pain. He denies RLS symptoms, paresthesias and peripheral neuropathy. He says his legs are jumpy and make it uncomfortable for him to sleep. He denies pain however has an uncomfortable sensation when he goes to sleep, though it does not wake him up from sleep. Mood, diet and memory is stable. 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 Current occupational exposures/hazards: Yes Cognitive needs: No Hearing needs: No Vision needs: No Physical Exam Vital Signs: Last Vital Signs Pulse 64 11/09/24 08:30 BP 114/72 11/09/24 08:30 Pulse Ox 93 11/09/24 08:30 Oxygen Delivery Method Room Air 11/09/24 08:30 BMI result Body Mass Index 32.8 Const General: cooperative and comfortable Nutritional Appearance: average body habitus and overweight Orientation/consciousness: patient oriented x3 HEENT Face and sinus: Yes face symmetric Teeth and gingiva: other (mallampti score is 3) Eyes Pupils: Equal, round and reactive pupils present Neck Other: limited lateral rotation Resp Effort & Inspection: normal respiratory effort and able to speak in complete sentences Neuro General: patient oriented x3 and moves all extremities Cranial nerves: Yes Equal, round and reactive pupils present, Yes Normal accommodation reflex present, Yes Normal facial strength present, Yes Midline tongue present, Yes Ability to bilaterally rotate head present and Yes Ability to bilaterally elevate shoulders present Cognition (Neuro): normal cognition Gait exam (Neuro): Normal gait present and Wide-based gait present Motor exam (neuro): 5/5 motor strength present throughout and Normal motor muscle tone present throughout Psych Appearance: grossly normal Mental Status: mental status grossly normal Thought process: Normal thought process present Results Reviewed Results Reviewed: SAHIL Compliance Report 07/2024 -10/2024 Total use is 90/90 day sand 100% >4 hour is 88 days Avg total daily use is 6hour and 41min. Apap [id number] Median press 9.6cmH20 and Leaks 0.5cmH20 AHI is 1.3 Assessment & Plan Assessment & Plan (1) Excessive daytime sleepiness: Code(s): G47.19 - Other hypersomnia Category: Medical (2) SAHIL on CPAP: Code(s): G47.33 - Obstructive sleep apnea (adult) (pediatric) Category: Medical (3) RLS (restless legs syndrome): Code(s): G25.81 - Restless legs syndrome Category: Medical Plan HST to evaluate SAHIL, as his last study was in 2016. PSG to evaluate PLMD/ with RLS will monitor. RLS labs ferritn - mma- homocysteine New supply order as pt is out of supplies. Orders: Orders Ferritin Today G25.81 - Restless legs syndrome, G47.19 - Other hypersomnia Methylmalonic Acid Today G25.81 - Restless legs syndrome, G47.19 - Other hypersomnia, G47.9 - Sleep disorder, unspecified, R53.83 - Other fatigue Homocysteine Today G25.81 - Restless legs syndrome, G47.19 - Other hypersomnia, G47.9 - Sleep disorder, unspecified, R53.83 - Other fatigue Vitamin B6 Today G25.81 - Restless legs syndrome, G47.19 - Other hypersomnia RT home sleep study Today G47.19 - Other hypersomnia Vitamin D 25-OH Total Today G25.81 - Restless legs syndrome, G47.19 - Other hypersomnia Vitamin B12 and Folate Today G25.81 - Restless legs syndrome, G47.19 - Other hypersomnia Vitamin B1 Today G25.81 - Restless legs syndrome, G47.19 - Other hypersomnia Patient Instructions: Sleep Hygiene provided: set a scheduled bedtime and wake time to help regulate the circadian rhythm and balance the release of pituitary hormones. Sleep in a dark room, temperatures below 68 degrees, and no devices n bed. Limit caffeinated products 6 hours prior to bed, and limit fluids 2-4 hours prior to bed. Gentle night yoga, diffusing essential oils, and playing soft music can be relaxing. Coding Level of Care Code New Pt Level 4 (21415) Diagnoses Excessive daytime sleepiness G47.19 SAHIL on CPAP G47.33 RLS (restless legs syndrome) G25.81 Sleep Questionnaire Difficulty falling asleep: No Difficulty staying asleep?: Yes Snoring: Yes Witnessed apneas: Yes Gasping arousals: No Nocturia: No GERD: No Vivid dreams: No Acting out dreams: No Abnormal behavior in sleep: No Abnormal movements in sleep: No Morning headaches: No Excessive daytime sleepiness: No Daytime naps: No Restless legs: No Hallucinations: No Sleep paralysis: No Drop attacks: No Sleep Study: Yes CPAP: Yes
--- OUTSIDE RECORDS SUMMARY | 2024-11-09 09:15 | XMS_ITS | Clinical Summary ---
Author Organization [address] Address [address] [place] [id number] Care Team Providers Care Community Resource Consultant Name Role Phone Pcp, Does Not Have [...] years) (1 of 1 - PCV) 2014 Influenza vaccine 09/17/2024 12/08/2023, , 11/19/2021, Additional history exists Covid-19 vaccine series ( - season) 2024 01/09/2021, 04/14/2020, 03/24/2020 Tetanus adult (Td q 10,TDAP once) 07/30/2031 07/29/2021, 06/17/2013, 03/02/2013 RSV Immunization (1 - 1-dose 75+ series) 12/01/2039 Meningococcal Vaccine Aged Out 02/26/2002 No alex kavon eligible based on patient's age to complete this topic Shingles vaccine (Shingrix) Completed 10/11/2020, 0 03/26/2019 Meningococcal B Vaccine Aged Out No l onger eligible based on patient's age to complete this topic Insurance [facility] Care Teams Community Resource Consultant Relationship Specialty Start Date End Date Pcp, Does Not Have A PCP - General 05/03/24
--- OUTSIDE RECORDS SUMMARY | 2024-11-09 09:15 | XMS_ITS | Clinical Summary ---
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 Not on file Not on file Not [...] - PCV) 2014 BLOOD PRESSURE 05/05/2023 11/04/2022 INFLUENZA VACCINE (#1) 2024 , 12/18/2018, 04/24/2018, Additional history exists COVID-19 VACCINE (2024- season) 2024 01/09/2021, 04/14/2020, 03/24/2020 Adult Td,Tdap Booster 07/30/2031 [...] topic Medical Devices Not on file Insurance [facility] Address: [address] [id number] [facility] Address: [address] [phone] [place] [address] [place] [address] Care Teams Stonecutter Assistant Relationship Specialty Start Date End Date Tisha Haque NP [address] [place] [address] PCP - General Nurse Practitioner 11/04/22 Additional Source Comments The information contained in this document represents components of the legal health record. It is not the complete legal health record.[facility]
== END 2024-11-09 09:20 | disposition home or self-care (01) ==
LOC: HO.HSMS 08:22
PROVIDERS: PCP Nurse Practitioner Family; Visit Provider Physician Assistant Medical
DX: G47.19 Other hypersomnia (principal); G47.33 Obstructive sleep apnea (adult) (pediatric); G25.81 Restless legs syndrome
CPT/HCPCS: 99204

== ENCOUNTER → 2024-11-09 08:21 | Outpatient (BNVA) | payer OTHER, SELFPAY | PROVIDERS: PCP Nurse Practitioner Family; Visit Provider Physician Assistant Medical | DX: G47.19 Other hypersomnia (principal); G47.33 Obstructive sleep apnea (adult) (pediatric); G25.81 Restless legs syndrome | CPT/HCPCS: 99202 ==

== ENCOUNTER 2024-12-27 08:45 | Outpatient (AMB) | payer OTHER, SELFPAY ==
--- NOTE | 2024-12-27 08:53 | A.OFFVIS_ITS ---
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 Renteria. He has a past medical history of BPH, hyperlipidemia, hypertension, neuropathy, obesity, obstructive sleep apnea on CPAP, multilevel lumbar spondylosis, and ED. He presents to the office today as a new patient to establish urological care. In discussion with the patient today he reports previously following up with [facility] as well as a urologist in [place]. He reports he has been on finasteride and Flomax for many years. He reports having had 2-3 cystoscopies in the past and has been offered surgical intervention for enlarged prostate however feels he is managing well with medications and would like to continue current management. In review of patient's chart it appears PSA has been ordered and obtained 10/11 1.1. He also reports noting issues with his erections however does not feel this is an issue at this time in his not looking to undergo any other treatment options at this time. In office urinalysis results reviewed with the patient today. PVR 57 mLs. We did discuss at length potential causes of enlarged prostate as well as further treatment options and risks and benefits of these treatment options. We also discussed taking finasteride every other day verses daily given ED. He is agreeable. He does report at times he experiences nocturia up to 2 times per night however feels he is managing this well at this time. He denies urinary urgency, urinary frequency, incontinence,hematuria, dysuria, foul smelling urine, changes to urinary stream, flank pain, fever, and or chills. He is happy with his current voiding parameters. He discusses his love for cycling. All questions were answered. He otherwise offers no other issues or concerns at this time. 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 Current occupational exposures/hazards: Yes Cognitive needs: No Hearing needs: No Vision needs: No Review of Systems Const All systems reviewed & are unremarkable except as noted in HPI and below Physical Exam Const General: cooperative, healthy appearing, comfortable, no acute distress, well developed, alert and awake Orientation/consciousness: patient oriented x3 Limitations: no limitations HEENT Head: Yes normal to inspection, Yes normocephalic and Yes atraumatic Ears: hearing grossly normal bilaterally Eyes General: appearance normal, both eyes and all related structures Neck Neck: Yes normal visual inspection and Yes trachea midline Chest Chest palpation & inspection: normal inspection of the chest Resp Effort & Inspection: normal respiratory effort and able to speak in complete sentences Cardio Rate: regular rate GI Inspection: Yes normal to inspection General: Yes no CVA tenderness Back/Spine/Pelvis Back: no CVA tenderness Skin General skin exam: no rashes or lesions noted Neuro General: patient oriented x3 Extrem General: Yes normal to inspection Psych Appearance: grossly normal and well kempt Mental Status: mental status grossly normal Speech and movement: Normal speech and movement present and Clear speech present Affect: normal affect Attitude: cooperative Thought process: Normal thought process present Thought content: Normal thought content present Insight: Fair insight present (Psych) Judgement: Fair judgement present (Psych) Office Procedures Post Void Residual Post Residual Void Post Void Residual (PVR): 57 [id number] Void Residual by ultrasound Results AMB Urinalysis, Automated UA Leukoctes 0 Oliverio/uL Last Edit by Karissa Colon, [facility] on 12/27/24 09:02 UA Nitrite Negative Last Edit by Karissa Colon, [facility] on 12/27/24 09:02 UA Urobilinogen 0.2 mg/dL Last Edit by Karissa Colon, [facility] on 12/27/24 09:02 UA Protein 15 mg/dL Last Edit by Karissa Colon, [facility] on 12/27/24 09:02 UA pH 6.0 Last Edit by Karissa Colon, [facility] on 12/27/24 09:02 UA Blood 0 Scot/uL Last Edit by Karissa Colon, [facility] on 12/27/24 09:02 UA Specific Woodruff 1.020 Last Edit by Karissa Colon, [facility] on 12/27/24 09:0 2 UA Ketone Negative Last Edit by Karissa Colon, [facility] on 12/27/24 09:02 UA Bilirubin 0 mg/dL Last Edit by Karissa Colon, [facility] on 12/27/24 09:02 UA Glucose 0 mg/dL Last Edit by Karissa Colon, [facility] on 12/27/24 09:02 Results Reviewed Results Reviewed: Laboratory Last Values Urine pH (Auto) 6.0 12/27/24 09:02 Specific Woodruff (Auto) 1.020 12/27/24 09:02 Urine Protein (Auto) 15 mg/dL 12/27/24 09:02 Glucose (UA)(Auto) 0 mg/dL 12/27/24 09:02 Urine Ketones (Auto) Negative 12/27/24 09:02 Urine Blood (Auto) 0 Scot/uL 12/27/24 09:02 Urine Nitrite (Auto) Negative 12/27/24 09:02 Urine Bilirubin (Auto) 0 mg/dL 12/27/24 09:02 Urine Urobilinogen (Auto) 0.2 mg/dL 12/27/24 09:02 Leukocyte Esterase (Auto) 0 Oliverio/uL 12/27/24 09:02 Assessment & Plan Assessment & Plan (1) BPH w urinary obs/LUTS: Code(s): N40.1 - Benign prostatic hyperplasia with lower urinary tract symptoms; N13.8 - Other obstructive and reflux uropathy Category: Medical (2) Erectile dysfunction: Code(s): N52.9 - Male erectile dysfunction, unspecified Category: Medical Qualifiers: Erectile dysfunction type: unspecified Qualified Code(s): N52.9 - Male erectile dysfunction, unspecified Plan In office urinalysis results reviewed with the patient today; as noted above. PVR 57 mL Most recent PSA results reviewed with the patient today; as noted above. We did discussed enlarged prostate and further treatment options and risks and benefits of these treatment options. Continue Flomax and finasteride as discussed. All questions were answered. We discussed erectile dysfunction and further treatment options and risks and benefits of these treatment options. We also discussed lifestyle modifications to assist with these urological conditions. He reports be happy with current voiding parameters. Will continue with surveillance monitoring. Will obtain PSA and testosterone in 6 months. Follow-up in 6 months with labs and PVR; or sooner with any issues, concerns, and or questions. Patient Instructions: The patient had an opportunity to ask questions regarding the treatment plan. All questions were answered. Physical exam, labs, and imaging were discussed and reviewed in detail. As well as risks, benefits, and discussion of treatment choices. No major barriers to understanding were identified. The patient expressed understanding and agreement with the above treatment plan. The patient was made aware they should contact our office by phone for worsening of their current condition, the appearance of new symptoms, or with any questions or concerns. Compliance is encouraged with any medications and follow up testing that is ordered. It is a privilege to be allowed the opportunity to participate in? your urological care.? Again, if you have any questions or concerns If you have any questions or concerns please do not hesitate to contact me. The office is [phone]. This note is constructed using voice recognition software. While every effort has been made to ensure accuracy dressmaker or tailor errors may have been included. Yours sincerely, DELFINA Lomeli Coding Level of Care Code New Pt Level 3 (00383) Diagnoses BPH w urinary obs/LUTS N40.1; N13.8 Erectile dysfunction, unspecified erectile dysfunction type N52.9 Erectile dysfunction type: unspecified CPT Codes Post Residual Void - PVR CPT Code: 81423-Touz Void Residual by ultrasound ([id number])
--- OUTSIDE RECORDS SUMMARY | 2024-12-27 09:10 | XMS_ITS | Data Portability ---
Author Organization [facility], [address] Address [address] [place] [address] Assessment No assessment recorded. Plan of Treatment Reminders Order Date Submit Date Provider Last Modified By Organization Details Last Modified Time Details Appointments None recorded. Lab rapid flu (A+B) 2023 024 [facility], [address] [place], [address], 4 14:00:28 SARS CoV 2 (COVID-19) Ag, QL, IA, upper respiratory specimen 2023 024 [facility], [id number] 2099[facility], [address] [place], [address], 4 14:00:30 Referral None recorded. Procedures None recorded. Surgeries None recorded. Imaging None recorded. Medication Orders prednisone 10 mg tablet 2023 024 [facility], [address], [place], [id number], 4 17:31:32 naproxen 500 mg tablet 2023 024 [id number], [address], [place], [id number], 4 12:29:00 cyclobenzap rine 10 mg tablet 2023 024 [facility], [address], [place], [id number], 4 12:29:00 albuterol sulfate HFA 90 mcg/actuati on aerosol inhaler 2023 024 [facility], [address], [place], [id number], 4 11:42:39 prednisone 20 mg tablet 2023 024 [facility], [address], [place], [id number], 4 11:42:47 benzonatate 200 mg capsule 2023 [facility], [address], [place], [id number], 4 11:35:10 Allergy Relief (fluticason e) 50 mcg/actuati on nasal spray,suspe nsion 2023 024 [facility], [address], [place], [id number], 4 11:42:39 Patient TargetsNo targets recorded. Patient Instructions Encounter Date Encounter Id Patient Instructions Last Modified By Organization Details Last Modified Time 02/21/2023 [id number] cough: care instructions [email or web address] Not available 02/21/2023 14:00:25 If you test positive for COVID-19, stay home for at least 5 days and isolate from others in your home. You are likely most infectious during these first 5 days. Wear a high-quality mask if you must be around others at home and in public. Do not go places where you are unable to wear a mask. For travel guidance, see [facility] s Travel webpage. Do not travel. Stay home and separate from others as much as possible. Use a separate bathroom, if possible. Take steps to improve ventilation at home, if possible. Don t share personal household items, like cups, towels, and utensils. Monitor your symptoms. If you have an emergency warning sign (like trouble breathing), seek emergency medical care immediately. If you had symptoms and: Your symptoms are improving You may end isolation after day 5 if: You are fever-free for 24 hours (without the use of fever-reducing medication). Your symptoms are not improving Continue to isolate until: You are fever-free for 24 hours (without the use of fever-reducing medication). Your symptoms are improving. Regardless of when you end isolation Until at least day 11: Avoid being around people who are more likely to get very sick from COVID-19. Remember to wear a high-quality mask when indoors around others at home and in public. Do not go places where you are unable to wear a mask until you are able to discontinue masking (see below). For travel guidance, see [facility] s Travel webpage. Not available 02/21/2023 14:00:23 Patient instruct ed on worsening signs and symptoms that would require further evaluation by ED or PCP such as fever of 101.0 or greater, congestion accompanied with coughing, vomiting, diarrhea, abdominal pain, decreased oral intake, lethargy, or other new symptom(s) experienced not discussed during this visit. Use humidifier and ensure good hydration. If you experience new concerning symptoms, shortness of breath, respiratory distress, or chest pain go to the ER. Use the medications prescribed. May use Decongestants if tolerated and no history of elevated blood pressure or Diabetes. Use saline nasal saline and Flonase daily for1 week. You may use tylenol for pain/fever. Do not take prednisone with Ibuprofen. Get some extra rest. When should you call for help? Call anytime you think you may need emergency care. For example, call if: You have severe trouble breathing. Call your doctor now or seek immediate medical care if: You have new or worse trouble breathing. You cough up dark brown or bloody mucus (sputum). You have a new or higher fever. You have a new rash. Watch closely for changes in your health, and be sure to contact your doctor if: You cough more deeply or more often, especially if you notice more mucus or a change in the color of your mucus. You are not getting better as expected. Not available 02/21/2023 14:00:15 06/22/2023 [id number] getting back to normal after low back pain: care instructions Not available 06/22/2023 12:28:54 As we discussed you have some muscular pain with at least some component of muscle spasm. We are going to change out the NSAIDS you are taking to naproxen in order to optimize the dose and timing. Take this twice daily and do not use any ibuprofen while taking this medication. Use tylenol as we were taking about if you still need more pain control. You can take up to 1000mg every 4 hours but do not go above 4000mg in one 24 hour period. We are also sending a muscle relaxant to the pharmacy to use at bedtime. It is sedating so please use caution. Follow up with your PCP as needed. Not available 06/22/2023 12:28:52 07/11/2023 [id number] You have been prescribed Prednisone to take as a tapered dose. You will receive a quantity of 42-10 mg tablets. You should take all the tablets prescribed for each day in the morning with food. The dosage will be reduced over a period of 12 days. Please follow the dosage instructions below. Day 1 take 6 tablets Day 2 take 6 tablets Day 3 take 5 tablets Day 4 take 5 tablets Day 5 take 4 tablets Day 6 take 4 tablets Day 7 take 3 tablets Day 8 take 3 tablets Day 9 take 2 tablets Day 10 take 2 tablets Day 11 take 1 tablet Day 12 take 1 tablet [email or web address] Not available 07/11/2023 17:31:21 Follow up with your PCP to discuss a possible PT referral for further evaluation and management. [email or web address] Not available 07/11/2023 17:33:49 Reason for Referral None Reported. Results Created Date Observation Date Name Description Value Unit Range Abnormal Flag Note LastModifiedBy Organization Detail LastModifiedTime 02/21/19 24 02/21/2023 rapid flu (A+B) Unknown Analyte negati ve Not Available [facility] [address] [place], [address], 02/21/2023 13:34:35 02/21/19 24 02/21/2023 rapid flu (A+B) Unknown Analyte negati ve Not Available [address] [address] [place], [address], 02/21/2023 13:34:35 02/21/19 24 02/21/2023 rapid flu (A+B) Unknown Analyte yes Not Available [address] [place] [address] [address] [place], [address], 02/21/2023 13:34:35 02/21/19 24 02/21/2023 SARS CoV 2 (COVI D-19) Ag, QL, IA, upper respi rator y speci men Unknown Analyte negati ve Not Available [address] [place], [address], 02/21/2023 13:38:56 02/21/19 24 02/21/2023 SARS CoV 2 (COVI D-19) Ag, QL, IA, upper respi rator y speci men Unknown Analyte yes Not Available [address] [place] [address] [address] [place], [address], 02/21/2023 13:38:56 Result Notes None recorded. Problems Name Problem SNOMED Code Status Onset Date Resolution Date Notes Provider Name and Address Organization Details Recorded Time Hypertensive disorder 29390715 Active Lluvia chacko PA - [facility] 4 13:31:27 Degeneration of intervertebral disc 06406940 Active Demetria Li n ricco, PA - [facility] 4 17:13:58 Large prostate 271620969 Active 2023 Lluvia chacko PA - [facility] 13:31:42 Problem Notes None recorded. Medical Equipment None Reported. Allergies No known drug allergies Medications Name Sig Start Date Stop Date Status Note LastModified by Organization Details LastModified Time cyclobenzap rine 10 mg tablet Take 1 tablet every day by oral route at bedtime for 10 days. 2023 active Not Available Not Available Not Avai lable Flomax 0.4 mg capsule Take 1 capsule every day by oral route. active Not Available Not Available No t Available prednisone 10 mg tablet Please follow the dosage instructi ons below. Day 1 take 6 tablets Day 2 take 6 tablets Day 3 take 5 tablets Day 4 take 5 tablets Day 5 take 4 tablets Day 6 take 4 tablets Day 7 take 3 tablets Day 8 take 3 tablets Day 9 take 2 tablets Day 10 take 2 tablets Day 11 take 1 tablet Day 12 take 1 tablet 2023 active Not Available Not Available Not Avai lable benzonatate 200 mg capsule Take 1 capsule 3 times a day by oral route as needed for 7 days. 06/21 completed Not Available Not Available Not Available lisinopril 20 mg tablet Take 2 tablets every day by oral route. active Not Available Not Available No t Available prednisone 20 mg tablet Take 2 tablets every day by oral route in the morning for 4 days. 06/21 completed Not Available Not Available Not Available albuterol sulfate HFA 90 mcg/actuati on aerosol inhaler Inhale 2 puffs every 4-6 hours by inhalatio n route as needed for 10 days. 06/21 completed Not Available Not Available Not Available naproxen 500 mg tablet Take 1 tablet twice a day by oral route, for pain. 2023 active Not Available Not Available Not Avai lable diazepam active Not Available Not Avai lable Not Available Allergy Relief (fluticason e) 50 mcg/actuati on nasal spray,suspe nsion [place] 1 spray every day by intranasa l route as directed for 30 days. 06/21 completed Not Available Not Available Not Available Vitals Date Recorded Body height Body mass index (BMI) Body weight Body temperature Heart rate Oxygen saturation Oxygen saturation in Arterial blood by Pulse oximetry Respiratory rate Systolic And Diastolic Provider Name and Address Organization Details Last Updated DateTime 4 177.8 cm 32.3 kg/m2 374559. 28 g 97.9 [degF] 87 /min 99 % 99 % 18 /min 122/77 mm[Hg] Lluvia SHARIF - [facility] 4 13:37:25 Date Recorded Body height Body mass index (BMI) Body weight Respiratory rate Pain severity - 0-10 verbal numeric rating [Score] - Reported Heart rate Body temperature Oxygen saturation Oxygen saturation in Arterial blood by Pulse oximetry Systolic And Diastolic Provider Name and Address Organization Details Last Updated DateTime 4 177.8 cm 32.3 kg/m2 792247. 28 g 18 /min 7 54 /min 97.7 [degF] 97 % 97 % 116/74 mm[Hg] Meghann Richardson PA - [facility] 4 11:44:24 Date Recorded Body height Body mass index (BMI) Body weight Oxygen saturation Oxygen saturation in Arterial blood by Pulse oximetry Heart rate Respiratory rate Body temperature Systolic And Diastolic Provider Name and Address Organization Details Last Updated DateTime 4 177.8 cm 31.6 kg/m2 31091.3 2 g 99 % 99 % 73 /min 17 /min 98.3 [degF] 125/74 mm[Hg] Demetria gunderson PA - [facility] 4 17:12:37 Social History Question Answer Notes LastModified by deltaDNA Details LastModified Time Tobacco Smoking Status Never Smoker Lluvia chacko PA - [facility] 02/21/2023 13:34:19 Have You Had A Flu Shot This Season? No [email or web address] Information not available 02/21/2023 If No, Would You Like A Flu Shot Today? No [email or web address] Information not available 06/22/2023 Have You Had Direct Contact, Or Contact During Intimacy, With Monkeypox Rash, Scabs, Or Body Fluids From A Person With Monkeypox? No [email or web address] Information not available 02/21/2023 What Was The Date Of Your Most Recent Tobacco Screening? 07/11/2023 [email or web address] Information not available 07/11/2023 Have You Recently Traveled Abroad? No [email or web address] Information not available 02/21/2023 Sex: Unknown Functional Status Question Answer Note LastModified by deltaDNA Details LastModified Time How many times per week do you consume alcohol? Less than 1 time per week [email or web address] Information not available 02/21/2023 Do you use any illicit or recreational drugs? No [email or web address] Information not available 02/21/2023 What is your level of alcohol consumption? Occasional [email or web address] Information not available 02/21/2023 Mental Status None recorded. Family History Nothing Reported. Medical History No medical history recorded. Immunizations Vaccine Type Date Status Note Provider Nam e and Address Organization Details Recorded Time COVID-19, mRNA, LNP-S, PF, 30 mcg/0.3 mL dose 1 completed KOLE Callahan [facility] 06/22/2023 11:33:39 Td (adult), 2 Lf tetanus toxoid, preservative free, adsorbed 2 completed KOLE Callahan [facility] 06/22/2023 11:33:39 Influenza, split virus, quadrivalent, PF 1 completed KOLE Callahan [facility] 06/22/2023 11:33:40 Past Encounters Encounter ID Performer Location Encounter Start Date Encounter Closed Date Diagnosis/Indication Diagnosis SNOMED-CT Code Diagnosis ICD10 Code Diagnosis IMO Codes Diagnosis Note [id number] 20994[facility] [address] 04/23/2021 10:50:13 04/23/2021 12:26:[id number] [place] [id number] [address] [address] 04/13/2021 17:12:08 04/13/2021 18:02:10 [id number] 2099_[facility] [address] 07/29/2021 08:36:25 07/29/2021 10:10:29 [id number] Lencho Dill, REPORT WRITER [address] [place] [address] 02/21/2023 13:17:53 02/21/2023 14:02:37 Exposure to SARS-CoV-2 715573715 Z20.822 Acute bronchitis 5282858 2 J20.9 [id number] [facility] [address] [address] [place] [address] 06/22/2023 11:28:59 06/22/2023 12:30:48 Low back strain 161917429 S39.012A [id number] [place] [address] [address] 07/11/2023 16:53:15 07/11/2023 17:35:13 Chronic low back pain 391259983 M54.50 Health Concerns Section Related Observation LastModified by Organization Detai ls LastModified Time None Recorded Concern Status LastModified by Organization Details LastModified Time None Recorded Advance Directives Directive None Recorded Payers Insurance Date Sequence Insurance Name Policy Number Policy Javed Covered Member ID Javed Member ID Guarantor Name 07/11/2023 1 [facility] [place] () [facility] [id number] Missael Petersdavid Notes Date Note Type Note Provider Name and Address Organization Details Recorded Time 024 text/ht ml CoughReported by PatientHPIFor quality, patient reportsharshanddrybut reportsintermittentandsymptoms worse with lying down. For severity, patient reportsworseningandpain with coughbut reportsmoderate. For timing, patient reportsworseningbut reportsgradual. For context, patient reportshistory of bronchitisbut reportspatient denies vapingandnon-smoker. For associated symptoms, patient reportshurts to breathbut reportsno fever,no chills,no chest pain,no heartburn,no nausea,no vomiting,no edema,no agitation,no wheezing, andno post nasal drip. For source of patient information, patient reportsinformation obtained from patient,patient arrived at urgent care ambulatory, andlearning styles: auditory. For duration, patient reportsconstantandsymptoms lasting over 2 weeks. For modifying factors, patient reportsat night. Lencho Dill NP [address] [place], [address], PA - [facility] 02/21/2023 14:00:57 024 text/ht ml Back Pain/Injury UCReported by PatientHPIFor quality, patient reportssharp,dull, andmuscle spasms. For severity, patient reportspain level 7/10. For aggravating factors, patient reportsgetting out of bed,movement/positioning, andprolonged sitting or lying. For source of patient information, patient reportsinformation obtained from patientandpatient arrived at urgent care ambulatory. For location, patient reportspain is not radiatingandlower back. For duration, patient reports1 weeks. For context, patient reportsoveruse. For alleviating factors, patient reportsanalgesics,feels better while active, andnsaids. KOLE Fuentes [address] [place], [address], [facility] 06/22/2023 12:29:08 024 text/ht ml Back Pain/Injury UCReported by PatientHPIFor location, patient reportspain radiating to the buttocksbut reportslower back. For quality, patient reportsdullandtightness. For severity, patient reportspain level 6/10(pain noted initially upon awakening in the am and decreases through the day but has some radiation along the left buttock and hip area.). For aggravating factors, patient reportsgetting out of bed. For duration, patient reportsstarted 4and__ days. For context, patient reportslifting,overuse, andused medications for back pain. For alleviating factors, patient reportsanalgesics,feels better while active, andnsaids. For prior imaging, patient reportsnone. 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 HILLARY NELSON MD [address] [place], [address], [facility] 07/11/2023 17:40:04
--- OUTSIDE RECORDS SUMMARY | 2024-12-27 09:10 | XMS_ITS | Clinical Summary ---
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 Not on file [...] 1982 HIV ONE-TIME SCREENING (18-65 YEARS) 1982 IPV VACCINES (2 of 3 - Adult catch-up series) 06/04/1985 05/07/1985 SMOKING STATUS SCREENING (Once After 26 Yrs) 1990 SCREENING FOR DIABETES 12/01/1999 COLOGUARD 2009 COLONOSCOPY 2009 COLORECTAL CANCER SCREENING 2009 FIT TEST 2009 FOBT 2009 SIGMOIDOSCOPY 2009 VIRTUAL COLONOSCOPY 2009 PNEUMOCOCCAL VACCINES (50+ years) (1 of 1 - PCV) 2014 BLOOD PRESSURE 05/05/2023 11/04/2022 INFLUENZA VACCINE (#1) 2024 , 12/18/2018, 04/24/2018, Additional history exists COVID-19 VACCINE ( season) 2024 01/09/2021, 04/14/2020, 03/24/2020 Adult Td,Tdap Booster 07/30/2031 07/29/2021 , 06/17/2013, 03/02/2013, Additional history exists RSV VACCINE (1 - 1-dose 75+ series) 12/01/2039 HEPATITIS A VACCINES Aged Out 05/01/1996, 01/01/19 [...] topic Medical Devices Not on file Insurance [address] [place] [address] [place] [address] [place] [address] [place] [address] [place] [address] Care Teams Tug Hand Relationship Specialty Start Date End Date Tisha Haque NP [address] [place] [address] PCP - General Nurse Practitioner 11/04/22 Additional Source Comments The information contained in this document represents components of the legal health record. It is not the complete legal health record.[facility]
--- OUTSIDE RECORDS SUMMARY | 2024-12-27 09:10 | XMS_ITS | Clinical Summary ---
Author Organization [address] Address [address] [place] [id number] Care Team Providers Care Res Counselor Name Role Phone Pcp, Does Not Have [...] patient's age to complete this topic Insurance [facility] Care Teams Res Counselor Relationship Specialty Start Date End Date Pcp, Does Not Have A PCP - General 05/03/24
== END 2024-12-27 09:52 | disposition home or self-care (01) ==
LOC: HO.HUSH 08:46
PROVIDERS: PCP Nurse Practitioner Family; Visit Provider Nurse Practitioner Family
DX: N40.1 Benign prostatic hyperplasia with lower urinary tract symptoms (principal); N13.8 Other obstructive and reflux uropathy; N52.9 Male erectile dysfunction, unspecified
CPT/HCPCS: 99203

== ENCOUNTER → 2024-12-27 08:45 | Outpatient (BNVA) | payer OTHER, SELFPAY | PROVIDERS: PCP Nurse Practitioner Family; Visit Provider Nurse Practitioner Family | DX: N40.1 Benign prostatic hyperplasia with lower urinary tract symptoms (principal); N13.8 Other obstructive and reflux uropathy; N52.9 Male erectile dysfunction, unspecified | CPT/HCPCS: 51798; 99202 ==